=== PATIENT | male | born 1955 | race African-American/Black ===

== ENCOUNTER 2016-08-13 20:47 | Emergency (ER) | payer OTHER ==
[~2016-08-13] VITALS: Ht 172.7 cm; Wt 127.0 kg
[2016-08-13 22:23] LABS: ABSOLUTE BASOPHIL COUNT 0 /CUMM (0.0-0.2); ABSOLUTE EOSINOPHIL COUNT 0.2 /CUMM (0.0-0.7); ABSOLUTE GRANULOCYTE CT 6.3 /CUMM (1.4-6.5); ABSOLUTE LYMPH COUNT 2.7 /CUMM (1.2-3.4); BASOPHIL % 0.3 % (0.0-2.0); EOSINOPHIL % 1.9 % (0-5); GRANULOCYTE % 62.1 % (42.2-75.2); HEMATOCRIT 51.4 % (42-52); MEAN CORPUSCULAR HGB 29.7 PG (27.0-31.0); MEAN CORPUSCULAR VOLUME 89.8 FL (80.0-94.0); MEAN PLATELET VOLUME 8.8 FL (7.4-10.4); PLATELET COUNT 176 /CUMM (130-400); RBC DISTRIBUTION WIDTH 13.9 % (11.5-14.5); RED BLOOD CELL CT 5.73 /CUMM (4.70-6.10); WHITE BLOOD CELL COUNT 10.1 /CUMM (4.8-10.8)
--- NOTE | 2016-08-13 22:32 | ED GI/GU/ABDOMINAL COMPLAINT ---
History of Present Illness General Chief Complaint: General Adult Stated Complaint: RECTAL BLEED Source: patient, family, old records Exam Limitations: no limitations Vital Signs & Intake/Output Vital Signs & Intake/Output Vital Signs Date Time Temp Pulse Resp B/P Pulse O2 O2 Flow FiO2 Ox Delivery Rate 08/14 0041 97.2 87 20 152/95 97 Room Air 08/13 2104 98.2 95 20 147/98 96 Room Air ED Intake and Output 08/14 0000 08/13 1200 Intake Total Output Total Balance Patient 280 lb Weight Allergies Coded Allergies: STATINS (Severe, MUSCLE ACHING, "TAKES MY BREATH AWAY" 08/13/16) soybean (Severe, "CAN'T BREATHE" 08/13/16) Triage Note: TRIAGE: PT TO ER C/C RECTAL BLEEDING THIS EVENING. STATES "WHEN I WENT TO THE BATHROOM EVERYTHING THAT CAME OUT WAS RED". BRIGHT RED IN COLOR. UNSURE IF THERE WAS CLOTS. HAS HX OF BLEEDING HEMMORRHOIDS. HAS BEEN TAKING DOANS FOR BACK PAIN WHICH HE HAS HAD SINCE THE [facility]. Triage Nurses Notes Reviewed? yes Onset: Just prior to arrival Duration: minute(s):, continues in ED Timing: recent history Quality/Severity: moderate, painless Radiation: no radiation Activities at Onset: moving bowels Prior Abdominal Problems: similar symptoms Past Sexual History: Unobtainable at this time No Modifying Factors: none HPI: Patient is been struggling with chronic back pain taking anti-inflammatory medications with little relief. Prior to admission patient reports painless rectal bleeding. Last year he had a similar episode lasting 3 days prescribed suppositories. He denies fever chills nausea vomiting diarrhea abdominal pain dysuria rash headache. Past History Travel History Traveled to [place] past 21 day No Medical History Any Pertinent Medical History? 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 No Review of Systems Review of Systems Constitutional: Reports: no symptoms. EENTM: Reports: no symptoms. Respiratory: Reports: no symptoms. Cardiovascular: Reports: no symptoms. GI: Reports: see HPI, bloody stool. Genitourinary: Reports: no symptoms. Musculoskeletal: Reports: no symptoms. Skin: Reports: no symptoms. Neurological/Psychological: Reports: no symptoms. Hematologic/Endocrine: Reports: no symptoms. Immunologic/Allergic: Reports: no symptoms. All Other Systems: Reviewed and Negative Physical Exam Physical Exam General Appearance: well developed/nourished, alert, awake, anxious, mild distress, obese Head: atraumatic, normal appearance Eyes: Bilateral: normal appearance, PERRL, EOMI, normal inspection. Ears, Nose, Throat, Mouth: hearing grossly normal, moist mucous membrane Neck: normal inspection, supple, full range of motion, normal alignment Respiratory: normal breath sounds, chest non-tender, no respiratory distress, quiet respiration, lungs clear Cardiovascular: regular rate/rhythm, normal peripheral pulses, norml femoral pulses equa Peripheral Pulses: 4+ carotid (R), 4+ carotid (L) Gastrointestinal: normal bowel sounds, soft, non-tender, no organomegaly Rectal: normal rectal tone, scanty blood without stool Male Genitals: normal genitalia Back: normal inspection, muscle spasm, no vertebral tenderness Extremities: normal range of motion, no ligament instability Neurologic/Psych: no motor/sensory deficits, awake, alert, oriented x 3, normal gait, normal mood/affect, 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 No Severe Sepsis Present: No Septic Shock Present: No Progress Differential Diagnosis: gastritis, hemorrhoids, PUD/GERD Plan of Care: Orders Procedure Date/time Status MISTAKE 08/13 2148 Active PARTIAL THROMBOPLASTIN TIME 08/13 2148 Complete PROTHROMBIN TIME 08/13 2148 Complete COMPREHENSIVE METABOLIC PANEL 08/13 2148 Complete CBC WITHOUT DIFFERENTIAL 08/13 2148 Complete Laboratory Tests 08/13/162214: Anion Gap 11, Estimated GFR > 60, BUN/Creatinine Ratio 16.4, Glucose 96, Calcium 9.7, Total Bilirubin 0.6, AST 23, ALT 40, Alkaline Phosphatase 85, Total Protein 7.3, Albumin 3.9, Globulin 3.4, Albumin/Globulin Ratio 1.1, PT 10.8, INR 1.03, APTT 33, CBC w Diff NO MAN DIFF REQ, RBC 5.73, MCV 89.8, MCH 29.7, RDW 13.9, MPV 8.8, Gran % 62.1, Lymphocytes % 26.3, Monocytes % 9.4 H, Eosinophils % 1.9, Basophils % 0.3, Absolute Granulocytes 6.3, Absolute Lymphocytes 2.7, Absolute Monocytes 1.0 H, Absolute Eosinophils 0.2, Absolute Basophils 0, PUBS MCHC 33.0 Initial ED EKG: none Departure Departure Time of Disposition: 32 Disposition: HOME OR SELF CARE Condition: Stable Clinical Impression Primary Impression: Rectal bleeding Referrals: BANDAR RYDER,LINA Kiran (PCP/Family) TRAN LENTZ MD Additional Instructions: Use your lidocaine/steroid suppositories as prescribed Departure Forms: Customer Survey General Discharge Information
[2016-08-13 22:41] LABS: PT 10.8 SEC (9.4-12.5); PTT 33 SEC (25-37)
[2016-08-14 00:41] VITALS: BP 152/95
[2016-08-14] MEDS ORDERED: CYCLOBENZAPRINE10 M1 PO (12:47)
[2016-08-14] MEDS ORDERED: AMMONIUM LACTA226 GM TOP (12:48)
[2016-08-14] MEDS ORDERED: MELOXICAM15 M1 PO (12:49)
[2016-08-14] MEDS ORDERED: MONTELUKAST SOD10 M1 PO (12:50)
[2016-08-14] MEDS ORDERED: JANUMET 50-5001 EACH PO (12:50)
[2016-08-14] MEDS ORDERED: TESTOSTERO200 MG/1 M IM (12:51)
[2016-08-14] MEDS ORDERED: TAMSULOSIN HCL0.4 M1 PO (12:52)
[2016-08-14] MEDS ORDERED: DEXILANT60 M1 PO (12:53)
[2016-08-14] MEDS ORDERED: BENICAR HCT 201 EACH PO (12:53)
[2016-08-14] MEDS ORDERED: AZELASTINE137 MCG/0. NASB (12:54)
[2016-08-14] MEDS ORDERED: LIDOCAINE HC PR (12:56)
== END 2016-08-14 00:43 ==
LOC: ERH 20:47
PROVIDERS: Emergency Medicine
DX: K62.5 Hemorrhage of anus and rectum (principal)
CPT/HCPCS: 96361; 96374

== ENCOUNTER 2016-08-14 10:16 | Observation (INO) | payer OTHER ==
[~2016-08-14] VITALS: Ht 172.7 cm; Wt 127.0 kg
--- NOTE | 2016-08-14 10:25 | NUR ---
61 Y/O MALE C/O RECTAL BLEEDING. STATES HE WAS EVAL'D IN ED LAST NIGHT AND CALLED DR SHIN TODAY, "HE SAID I WAS SUPPOSED TO BE ADMITTED". DENIES ANY NEW/ADDITIONAL COMPLAINTS.
--- NOTE | 2016-08-14 10:58 | NUR ---
PT PROVIDED URINE SAMPLE. TRIO SENT. CLEAR YELLOW URINE.
--- NOTE | 2016-08-14 11:08 | ED GI/GU/ABDOMINAL COMPLAINT ---
History of Present Illness General Chief Complaint: General Adult Stated Complaint: RECTAL BLEEDING, WAS HERE LAST NIGHT Source: patient, family, old records Exam Limitations: no limitations Vital Signs & Intake/Output Vital Signs & Intake/Output Vital Signs Date Time Temp Pulse Resp B/P Pulse O2 O2 Flow FiO2 Ox Delivery Rate 08/14 1510 97.9 67 18 138/83 98 Room Air 08/14 1256 98.3 76 16 143/95 95 Room Air 08/14 1240 97 Room Air 08/14 1026 97.6 96 18 146/108 97 Room Air Allergies Coded Allergies: STATINS (Severe, MUSCLE ACHING, "TAKES MY BREATH AWAY" 08/13/16) soybean (Severe, "CAN'T BREATHE" 08/13/16) Reconcile Medications Ammonium Lactate 12 % LOTION SKIN HEALTH (Reported) Azelastine HCl 137 MCG (0.1 %) SPRAY.PUMP 2 SPRAY NASB BIDP PRN ITCHING ( Reported) Cyclobenzaprine HCl 10 MG TABLET 1 TAB PO QPMP MUSCLE SPASMS (Reported) Dexlansoprazole (Dexilant) 60 MG CAP.BP 1 CAP PO DAILY ACID REFLUX ( Reported) Lidocaine/Hydrocortisone AC (Lidocaine-Hc 3-1% Cream Kit) 3 %-1 % (7 GRAM) KIT PAIN CONTROL (Reported) Meloxicam 15 MG TABLET 1 TAB PO DAILY NEEDED PAIN CONTROL (Reported) Montelukast Sodium 10 MG TABLET 1 TAB PO DAILY PAIN CONTROL (Reported) Olmesartan/Hydrochlorothiazide (Benicar Hct 20-12.5 MG Tablet) 20 MG-12.5 MG TABLET 1 TAB PO DAILY HIGH BLOOD PRESSURE (Reported) Sitagliptin Phos/Metformin HCl (Janumet 50-500 MG Tablet) 50 MG-500 MG TABLET 1 TAB PO BID DIABETES (Reported) Tamsulosin HCl 0.4 MG CAP.ER.24H 1 CAP PO QPM BLADDER HEALTH (Reported) Testosterone Cypionate 200 MG/ML VIAL 1 ML IM Q2W HEALTH SUPPLEMENT (Reported ) Triage Note: 61 Y/O MALE C/O RECTAL BLEEDING. STATES HE WAS EVAL'D IN ED LAST NIGHT AND CALLED DR SHNI TODAY, "HE SAID I WAS SUPPOSED TO BE ADMITTED". DENIES ANY NEW/ADDITIONAL COMPLAINTS. Triage Nurses Notes Reviewed? yes HPI: Patient is a 61 year old male presents complaining of rectal bleeding. Bleeding onset yesterday. 6 episodes of blood per rectum since onset. Patient was seen in the ED yesterday evening, given IV fluids, protonix IV and discharge home. Patient called Gi Dr. Reynolds today and was referred back to the ED for continued epsiodes. Mild diffuse abdominal discomfort. Patient with history of internal hemorrhoid, tried using a steroid suppository with no improvement. Decreased food and fluid intake over the past 24 hours. Patient takes meloxicam regularly. Occasionally takes Advil or aleve, also took Les(aspirin) yesterday for low back pain. Denies lightheadedness, chest pain, dyspnea, nausea, vomiting, fevers, chills. (ADI ALVAREZ) Past History Travel History Traveled to [place] past 21 day No Medical History Any Pertinent Medical History? 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 No (ADI ALVAREZ) Review of Systems Review of Systems Constitutional: Denies: chills, fever. EENTM: Reports: no symptoms. Respiratory: Denies: cough, short of breath. Cardiovascular: Denies: chest pain, syncope. GI: Reports: see HPI, abdominal pain, bloody stool. Denies: nausea, vomiting. Genitourinary: Reports: no symptoms. Musculoskeletal: Reports: back pain. Skin: Reports: no symptoms. Neurological/Psychological: Reports: no symptoms. Hematologic/Endocrine: Reports: see HPI. Immunologic/Allergic: Reports: no symptoms. (ADI ALVAREZ) Physical Exam Physical Exam General Appearance: well developed/nourished, alert, awake, obese Head: atraumatic, normal appearance Eyes: Bilateral: normal appearance, PERRL, EOMI. Ears, Nose, Throat, Mouth: hearing grossly normal, moist mucous membrane Neck: normal inspection, supple, full range of motion Respiratory: normal breath sounds, chest non-tender, no respiratory distress, lungs clear Cardiovascular: regular rate/rhythm (borderline tachycardic) Gastrointestinal: normal bowel sounds, soft, non-tender Rectal: small amount of bright red blood in rectal vault. No external hemorrhoid Back: normal inspection, normal range of motion, no vertebral tenderness Extremities: normal range of motion Neurologic/Psych: no motor/sensory deficits, awake, alert, oriented x 3, normal gait, normal mood/affect Skin: intact, normal color, warm/dry Core Measures ACS in differential dx? No Severe Sepsis Present: No Septic Shock Present: No (JERILYN WATERS,ADI) Progress Differential Diagnosis: bleeding hemorrhoids, diverticular bleed, upper GI bleed Plan of Care: Orders Procedure Date/time Status Clear Liquid Diet 08/14 D Active Patient Data 08/[address] in observation 08/14 1548 Active Vital Signs 08/14 1505 Active Code Status 08/14 1505 Active MISTAKE 08/14 1119 Active PROTHROMBIN TIME 08/14 1119 Complete BASIC METABOLIC PANEL 08/14 1119 Complete TYPE & SCREEN (NOT X-MATCH) 08/14 1119 Complete CBC WITHOUT DIFFERENTIAL 08/14 1108 Complete URINALYSIS 08/14 1054 Complete Laboratory Tests 08/14/16 1137: Anion Gap 10, Estimated GFR > 60, BUN/Creatinine Ratio 17.8, Glucose 98, Calcium 9.5, PT 11.8, INR 1.13, CBC w Diff NO MAN DIFF REQ, RBC 5.55, MCV 89.5, MCH 30.0 , RDW 14.0, MPV 9.1, Gran % 72.3, Lymphocytes % 18.9 L, Monocytes % 6.9, Eosinophils % 1.3, Basophils % 0.6, Absolute Granulocytes 6.0, Absolute Lymphocytes 1.6, Absolute Monocytes 0.6, Absolute Eosinophils 0.1, Absolute Basophils 0, PUBS MCHC 33.5 08/14/16 1055: Urine Color YEL, Urine Clarity CLEAR, Urine pH 6.0, Ur Specific [place] 1.020, Urine Protein NEG, Urine Ketones NEG, Urine Nitrite NEG, Urine Bilirubin NEG, Urine Urobilinogen 0.2, Ur Leukocyte Esterase NEG, Ur Microscopic SEDIMENT EXAMINED, Urine RBC 1-3, Urine WBC RARE, Urine Bacteria RARE H, Urine Mucus FEW , Urine Hemoglobin TRACE-INTACT H, Urine Glucose NEG 1135: Discussed with Dr. Rivas. 08/14/2016 12:05:21 PM: Results of repeat CBC discussed with patient. Patient resting comfortably. No significant change in hemoglobin since yesterday evening. Awaiting call back from Dr. Reynolds to discuss patient. 1215: Discussed with Dr. Reynolds: will take patient for sigmoidoscopy this afternoon, will call back prior as patient will need enema approximately 30 minutes prior to arrival. 1500: Discussed with Dr. Reynolds: patient has internal hemorrhoids, no bleeding from the hemorrhoids. Diverticulosis seen on the sigmoidoscopy but no active bleeding in the area visualized. Given extent of patient's diverticulosis, recommends bringing for observation, clear liquid diet, serial CBC's(twice a day ), contact immediately if any emergent changes (ADI ALVAREZ) Initial ED EKG: none (ADI ALVAREZ) Departure Departure Time of Disposition: 1551 Disposition: STILL A PATIENT Condition: Stable Clinical Impression Primary Impression: Rectal bleeding Referrals: BANDAR RYDER,LINA Kiran (PCP/Family) Departure Forms: Customer Survey General Discharge Information Observation Note Spoke With: FRANCE DUENAS MD Physician Advisor Notified: BOBY RYDER,MONTSE [address] Place Patient In: Non-ED OBS Care Area Rationale for Observation: My rational for observation is as follows: Serial complete blood cell counts, monitoring for any worsening bleeding. Patient had sigmoidoscopy this afternoon and gastroenterology recommends observation based on the findings of the sigmoidoscopy. (ADI ALVAREZ) PA/SHOT PACKER Co-Sign Statement Statement: ED Attending supervision documentation- [X] I saw and evaluated the patient. I have also reviewed all the pertinent lab results and diagnostic results. I agree with the findings and the plan of care as documented in the PA's/SHOT PACKER's documentation. [X] I have reviewed the ED Record and agree with the PA's/SHOT PACKER's documentation. [] Additions or exceptions (if any) to the PAs/SHOT PACKER's note and plan are summarized below: [] (KAVITA RYDER,REN)
--- NOTE | 2016-08-14 11:30 | NUR ---
TRIAGE NOTE ACKNOWLEDGED AND RN CARE ASSUMED PT EVALUATED BY PA STUDENT AND LETY WATERS
--- NOTE | 2016-08-14 11:38 | NUR ---
LABS DRAWN AND SENT (BLUE,SST,PINK,LAV,MORILLO)
[2016-08-14 11:55] LABS: ABSOLUTE BASOPHIL COUNT 0 /CUMM (0.0-0.2); ABSOLUTE EOSINOPHIL COUNT 0.1 /CUMM (0.0-0.7); ABSOLUTE LYMPH COUNT 1.6 /CUMM (1.2-3.4); ABSOLUTE MONOCYTE COUNT 0.6 /CUMM (0.10-0.60); BASOPHIL % 0.6 % (0.0-2.0); EOSINOPHIL % 1.3 % (0-5); GRANULOCYTE % 72.3 % (42.2-75.2); HEMATOCRIT 49.7 % (42-52); MEAN CORPUSCULAR HGB CONC 33.5 G/DL (33.0-37.0); MEAN CORPUSCULAR VOLUME 89.5 FL (80.0-94.0); MEAN PLATELET VOLUME 9.1 FL (7.4-10.4); PLATELET COUNT 161 /CUMM (130-400); RED BLOOD CELL CT 5.55 /CUMM (4.70-6.10); WHITE BLOOD CELL COUNT 8.3 /CUMM (4.8-10.8)
[2016-08-14 12:09] LABS: PT 11.8 SEC (9.4-12.5)
[2016-08-14] MEDS ORDERED: CYCLOBENZAPRINE10 M1 PO (12:47)
[2016-08-14] MEDS ORDERED: AMMONIUM LACTA226 GM TOP (12:48)
[2016-08-14] MEDS ORDERED: MELOXICAM15 M1 PO (12:49)
[2016-08-14] MEDS ORDERED: MONTELUKAST SOD10 M1 PO (12:50)
[2016-08-14] MEDS ORDERED: JANUMET 50-5001 EACH PO (12:50)
[2016-08-14] MEDS ORDERED: TESTOSTERO200 MG/1 M IM (12:51)
[2016-08-14] MEDS ORDERED: TAMSULOSIN HCL0.4 M1 PO (12:52)
[2016-08-14] MEDS ORDERED: BENICAR HCT 201 EACH PO (12:53)
[2016-08-14] MEDS ORDERED: DEXILANT60 M1 PO (12:53)
[2016-08-14] MEDS ORDERED: AZELASTINE137 MCG/0. NASB (12:54)
[2016-08-14] MEDS ORDERED: LIDOCAINE HC PR (12:56)
--- NOTE | 2016-08-14 13:15 | NUR ---
ADMINISTERED FLEETS ENEMA ORDERED WITH POSITIVE RESULTS PT HAD LARGE SEMI FORMED BOWEL MOVEMENT WITH BLOODY WATER NOTED. PT TOLERATED PROCEEDURE WELL.
--- NOTE | 2016-08-14 14:06 | NUR ---
PT SENT TO GI LAB
--- NOTE | 2016-08-14 15:08 | NUR ---
PT RETUNED TO ROOM FROM GI. ACCORDING TO REPORT FROM GI RN, BLEEDING APPEARS TO BE COMING FROM AN INFLAMMED DIVERTICULA. PT AWAKE AND ALERT, ALL V.S.S.
--- NOTE | 2016-08-14 15:13 | Cons- Gastroenterology ---
General Information and HPI Consulting Request Date of Consult: 08/14/16 Requested By: Emergency Department Reason for Consult: Hematochezia Source of Information: patient History of Present Illness: 61-year-old male with a history of diverticular disease and "abscess" who had the acute onset of lower abdominal discomfort, loose bowel movements, and blood per rectum last night. This persisted and he presented to emergency room. He has had no syncope, lightheadedness, upper abdominal pain, antecedent bleeding or pain, chronic indigestion. His last passage of blood was this morning Allergies/Medications Allergies: Coded Allergies: STATINS (Severe, MUSCLE ACHING, "TAKES MY BREATH AWAY" 08/13/16) soybean (Severe, "CAN'T BREATHE" 08/13/16) Home Med List: Ammonium Lactate 12 % LOTION SKIN HEALTH (Reported) Azelastine HCl 137 MCG (0.1 %) SPRAY.PUMP 2 SPRAY NASB BIDP PRN ITCHING ( Reported) Cyclobenzaprine HCl 10 MG TABLET 1 TAB PO QPMP MUSCLE SPASMS (Reported) Dexlansoprazole (Dexilant) 60 MG CAP..BP 1 CAP PO DAILY ACID REFLUX ( Reported) Lidocaine/Hydrocortisone AC (Lidocaine-Hc 3-1% Cream Kit) 3 %-1 % (7 GRAM) KIT PAIN CONTROL (Reported) Meloxicam 15 MG TABLET 1 TAB PO DAILY NEEDED PAIN CONTROL (Reported) Montelukast Sodium 10 MG TABLET 1 TAB PO DAILY PAIN CONTROL (Reported) Olmesartan/Hydrochlorothiazide (Benicar Hct 20-12.5 MG Tablet) 20 MG-12.5 MG TABLET 1 TAB PO DAILY HIGH BLOOD PRESSURE (Reported) Omeprazole 40 MG CAPSULE.DR 1 CAP PO BID Reflux Sitagliptin Phos/Metformin HCl (Janumet 50-500 MG Tablet) 50 MG-500 MG TABLET 1 TAB PO BID DIABETES (Reported) Tamsulosin HCl 0.4 MG CAP.ER.24H 1 CAP PO QPM BLADDER HEALTH (Reported) Testosterone Cypionate 200 MG/ML VIAL 1 ML IM Q2W HEALTH SUPPLEMENT (Reported ) Current Medications: Current Medications Sig/Darwin Start time Last Medication Dose Route Stop Time Status Admin Chlorhexidine 1 GM .STK-MED ONE 08/14 1505 DC Gluconate TOP 08/14 1506 Sodium Chloride 1,000 ML ONCE ONE 08/14 1200 AC 08/14 IV 08/14 1959 1237 Sodium Phosphate 1 UNIT ONCE ONE 08/14 1245 DC 08/14 MN 08/14 1246 1314 Past History Travel History Traveled to [place] past 21 day No Medical History Neurological: NONE EENT: allergies Cardiovascular: hyperlipidemia Respiratory: NONE Gastrointestinal: HEMMORRHOIDS ACID REFLUX diverticulosis Hepatic: NONE Renal: NONE Musculoskeletal: osteoarthritis Psychiatric: NONE Endocrine: diabetes Blood Disorders: NONE 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 EENTM: Denies: icterus, epistaxis. Cardiovascular: Denies: chest pain, syncope. Respiratory: Denies: cough, hemoptysis, short of breath. GI: Reports: see HPI. Genitourinary: Denies: dysuria, hematuria. Musculoskeletal: Denies: joint swelling, neck pain. Skin: Denies: jaundice, lesions. Neurological/Psychological: Denies: cognitive dysfunction, numbness. Hematologic/Endocrine: Reports: bleeding. Denies: bruising. Exam & Diagnostic Data Vital Signs and I&O Vital Signs Date Time Temp Pulse Resp B/P Pulse O2 O2 Flow FiO2 Ox Delivery Rate 08/14 1256 98.3 76 16 143/95 95 Room Air 08/14 1240 97 Room Air 08/14 1026 97.6 96 18 146/108 97 Room Air Intake & Output 08/14 1600 08/14 0400 08/13 1600 08/13 0400 08/12 1600 08/12 0400 Intake Total Output Total Balance Number 1 Bowel Movements Patient 280 lb Weight Physical Exam: Well-developed, obese -[place] male, no apparent distress. Alert and oriented with normal cognition. Skin without lesion. No adenopathy. No scleral icterus. No oropharyngeal lesion. Heart regular rhythm. Lungs clear bilaterally. Abdomen obese and soft with no tenderness, mass or organomegaly, with normal bowel sounds. No edema. Results Pertinent Lab Results: Laboratory Tests 08/14 08/14 1137 1055 Chemistry Sodium (137 - 145 mmol/L) 138 Potassium (3.5 - 5.1 mmol/L) 4.1 Chloride (98 - 107 mmol/L) 101 Carbon Dioxide (22 - 30 mmol/L) 27 Anion Gap (5 - 16) 10 BUN (9 - 20 mg/dL) 16 Creatinine (0.7 - 1.2 mg/dL) 0.9 Estimated GFR (>60 ml/min) > 60 BUN/Creatinine Ratio (7 - 25 %) 17.8 Glucose (65 - 99 mg/dL) 98 Calcium (8.4 - 10.2 mg/dL) 9.5 Coagulation PT (9.4 - 12.5 SEC) 11.8 INR (0.90 - 1.17) 1.13 Hematology CBC w Diff NO MAN DIFF REQ WBC (4.8 - 10.8 /CUMM) 8.3 RBC (4.70 - 6.10 /CUMM) 5.55 Hgb (14.0 - 18.0 G/DL) 16.7 Hct (42 - 52 %) 49.7 MCV (80.0 - 94.0 FL) 89.5 MCH (27.0 - 31.0 PG) 30.0 RDW (11.5 - 14.5 %) 14.0 Plt Count (130 - 400 /CUMM) 161 MPV (7.4 - 10.4 FL) 9.1 Gran % (42.2 - 75.2 %) 72.3 Lymphocytes % (20.5 - 51.1 %) 18.9 L Monocytes % (1.7 - 9.3 %) 6.9 Eosinophils % (0 - 5 %) 1.3 Basophils % (0.0 - 2.0 %) 0.6 Absolute Granulocytes (1.4 - 6.5 /CUMM) 6.0 Absolute Lymphocytes (1.2 - 3.4 /CUMM) 1.6 Absolute Monocytes (0.10 - 0.60 /CUMM) 0.6 Absolute Eosinophils (0.0 - 0.7 /CUMM) 0.1 Absolute Basophils (0.0 - 0.2 /CUMM) 0 PUBS MCHC (33.0 - 37.0 G/DL) 33.5 Urines Urine Color (YEL,AMB,STR) YEL Urine Clarity (CLEAR) CLEAR Urine pH (5.0 - 8.0) 6.0 Ur Specific [place] (1.001 - 1.035) 1.020 Urine Protein (NEG,<30 MG/DL) NEG Urine Ketones (NEG) NEG Urine Nitrite (NEG) NEG Urine Bilirubin (NEG) NEG Urine Urobilinogen (0.1 - 1.0 EU/dl) 0.2 Ur Leukocyte Esterase (NEG) NEG Ur Microscopic SEDIMENT EXAMINED Urine RBC (0 - 5 /HPF) 1-3 Urine WBC (0 - 2 /HPF) RARE Urine Bacteria (NEG/NONE) RARE H Urine Mucus (FEW,NONE) FEW Urine Hemoglobin (NEG) TRACE-INTACT H Urine Glucose (N MG/DL) NEG Assessment/Plan Assessment/Recommendations: Acute onset hematochezia without hemodynamic compromise, and with normal hematocrit, without change since last night. Most likely hemorrhoidal/outlet bleeding (although with loose bowel movement and pain, which is not consistent), but rule out diverticular or other colonic source. Recommendations * Flexible sigmoidoscopy to be performed, with further recommendations to follow * Follow CBC Consult Acknowledgment - Thank you for your consult request.
--- NOTE | 2016-08-14 15:16 | Proc Note Gastroenterology ---
Gastroenterology Procedure Procedure Date: 08/14/16 GI Procedure(s): Flexible sigmoidoscopy Drywall Installer: Supa Reynolds M.D. ASA Classification: III Indications: Hematochezia Meds Received: None Patient's Tolerance: good Complications: None Extent Reached: 45 cm Procedure: The patient signed informed consent, and was placed in the Power position. Examination of the rectum was normal. The Olympus high-definition variable stiffness colonoscope was inserted through the anus and advanced to the left colon, 45 cm from the anus.. Retroflexion was performed in order to examine the rectum. Findings: There were enlarged internal hemorrhoids, but no friability, bleeding site, or evidence of recent bleeding such as nipple/bony. There was no blood within the distal rectum. The rectal mucosa was normal. There was sigmoid diverticulosis with scant red blood coating areas of the mucosa. There was abundant stool, formed. No active bleeding site, nor clot was identified. Impression: * Diverticulosis * Enlarged internal hemorrhoids, without evidence of active or recent bleeding Recommendations: * Observation * Clear liquid diet * Follow-up CBC twice a day CC: BANDAR RYDER,LINA Kiran
--- NOTE | 2016-08-14 16:08 | NUR ---
PT WAS INCONTINENT OD A MODERATE AMOUNT OF BLOODY MUCUS.
--- NOTE | 2016-08-14 16:29 | NUR ---
Emergency Dept UC Admit Note: To be admitted to [facility] by DR DUENAS with ACUTE LOWER GI BLEED as the diagnosis, to GEN MED/OBSERVATION location. Nursing Setup Technician and admitting notified 08/14/16 at 1612 PT WILL GO TO ROOM 216-1
--- NOTE | 2016-08-14 17:02 | NUR ---
PT ADMITTED TO ROOM # 216-1. ORAL REPORT GIVEN TO XIN TURNER ALL V.S.S. CLINICAL STATUS UNCHANGED, PT READY FOR TRANSFER.
--- NOTE | 2016-08-14 17:33 | NUR ---
DISTRIBUTION CALLED TO TRANSFER PT
--- NOTE | 2016-08-14 18:00 | NUR ---
NURSING NOTE: PATIENT ARRIVED TO FLOOR VIA STRETCHER WITH DISTRIBUTION FROM ER. PATIENT A/OX3, ROOM AIR, SKIN INTACT, VSS. PATIENT INDEPENDENTLY WALKED FROM STRETCHER TO BED. IV RUNNING NS @ 125 FROM ER PER ORDER. PATIENT'S BELONGINGS BROUGHT FROM ER TO PATIENT ROOM PLACED IN CABINETS IN ROOM BY SPOUSE. CLEAR LIQUID DIET IN PLACE. HAT PLACED IN BATHROOM, PATIENT INFORMED TO HAVE BOWEL MOVEMENTS IN HAT FOR THEM TO BE TESTED. WILL CONTINUE TO MONITOR.
[2016-08-14 18:11] VITALS: BP 148/98
--- NOTE | 2016-08-14 19:28 | History & Physical ---
See Addendum General Information and HPI MD Statement: I have seen and personally examined KRISTEN RHODES JR and documented this H&P. The patient is a 61 year old M who presented with a patient stated chief complaint of [lower GI bleeding]. Source of Information: patient, family, old records Exam Limitations: no limitations History of Present Illness: Mr. Rhodes 61 year old male with chief complaint of lower GI bleeding. Patient has past medical history of diverticulosis, diabetes, hypertension, GERD , BPH, chronic back pain. Patient reported that yesterday he started to have deana bleeding per rectum with minimal stool, he had 7 episodes up to now, he visited the ED yesterday and received IV fluid and was discharged home, came again this afternoon with excessive rectal bleeding and had sigmoidoscope by Dr. Reynolds. Patient reported that his last normal bowel movement was yesterday morning, he used new medication "Doans" for back pain which is aspirin 2 tablets twice a day, and started to have bleeding per rectum afterwords. He denied any abdominal pain, nausea or vomiting, urinary changes dysuria or hematuria, bleeding from nose, mouth, ears, bruises. Patient denied chest pain, palpitation, shortness of breath, lightheadedness or dizziness. Patient had his last colonoscope [address] Borden, few polyps were removed and was asked to do follow up colonoscopy in 5 years. He denied history of constipation although he used to take Colace every other day. Allergies/Medications Allergies: Coded Allergies: STATINS (Severe, MUSCLE ACHING, "TAKES MY BREATH AWAY" 08/13/16) soybean (Severe, "CAN'T BREATHE" 08/13/16) Home Med list Ammonium Lactate 12 % LOTION SKIN HEALTH (Reported) Azelastine HCl 137 MCG (0.1 %) SPRAY.PUMP 2 SPRAY NASB BIDP PRN ITCHING ( Reported) Cyclobenzaprine HCl 10 MG TABLET 1 TAB PO QPMP MUSCLE SPASMS (Reported) Dexlansoprazole (Dexilant) 60 MG DANN.BP 1 CAP PO DAILY ACID REFLUX ( Reported) Lidocaine/Hydrocortisone AC (Lidocaine-Hc 3-1% Cream Kit) 3 %-1 % (7 GRAM) KIT PAIN CONTROL (Reported) Meloxicam 15 MG TABLET 1 TAB PO DAILY NEEDED PAIN CONTROL (Reported) Montelukast Sodium 10 MG TABLET 1 TAB PO DAILY PAIN CONTROL (Reported) Olmesartan/Hydrochlorothiazide (Benicar Hct 20-12.5 MG Tablet) 20 MG-12.5 MG TABLET 1 TAB PO DAILY HIGH BLOOD PRESSURE (Reported) Sitagliptin Phos/Metformin HCl (Janumet 50-500 MG Tablet) 50 MG-500 MG TABLET 1 TAB PO BID DIABETES (Reported) Tamsulosin HCl 0.4 MG CAP.ER.24H 1 CAP PO QPM BLADDER HEALTH (Reported) Testosterone Cypionate 200 MG/ML VIAL 1 ML IM Q2W HEALTH SUPPLEMENT (Reported ) Past History Travel History Traveled to [place] past 21 day No Medical History Blood Transfusion Hx: No Neurological: NONE EENT: allergies Cardiovascular: hyperlipidemia Respiratory: NONE Gastrointestinal: HEMMORRHOIDS ACID REFLUX diverticulosis Hepatic: NONE Renal: NONE Musculoskeletal: osteoarthritis Psychiatric: NONE Endocrine: diabetes Blood Disorders: NONE Cancer(s): NONE 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 EENTM: Denies: blurred vision, nasal congestion. Cardiovascular: Denies: chest pain, palpitations. Respiratory: Denies: cough, short of breath. GI: Denies: abdominal pain, nausea, vomiting. Genitourinary: Denies: dysuria, hematuria. Musculoskeletal: Reports: back pain. Denies: joint pain. Neurological/Psychological: Denies: headache. Exam & Diagnostic Data Last 24 Hrs of Vital Signs/I&O Vital Signs Date Time Temp Pulse Resp B/P Pulse O2 O2 Flow FiO2 Ox Delivery Rate 08/14 1811 98.2 75 20 148/98 96 Room Air 08/14 1728 84 18 142/93 97 Room Air 08/14 1510 97.9 67 18 138/83 98 Room Air 08/14 1256 98.3 76 16 143/95 95 Room Air 08/14 1240 97 Room Air 08/14 1026 97.6 96 18 146/108 97 Room Air Intake & Output 08/14 1600 08/14 0800 08/14 0000 Intake Total Output Total Balance Number 1 Bowel Movements Patient 127.006 kg Weight Physical Exam General Appearance Alert, Oriented X3, Cooperative, No Acute Distress Skin No Rashes, No Breakdown, No Significant Lesion HEENT Atraumatic, PERRLA, EOMI, Mucous Membr. moist/pink Neck Supple, No JVD Cardiovascular Regular Rate, Normal S1, Normal S2, No Murmurs Lungs Clear to Auscultation, Normal Air Movement Abdomen Normal Bowel Sounds, Soft, No Tenderness Neurological Normal Speech, Strength at 5/5 X4 Ext, Normal Tone, Sensation Intact, Cranial Nerves 3-12 NL, Reflexes 2+ Extremities No Clubbing, No Cyanosis, No Edema, Normal Pulses Vascular Normal Pulses, Pulses Symmetrical Assessment/Plan Assessment: Mr. Rhodes 61 year old male with chief complaint of lower GI bleeding. Patient has past medical history of diverticulosis, diabetes, hypertension, GERD , BPH, chronic back pain. Vital signs Temperature 97.6, pulse 96, blood pressure 146/108, respiration 18 on room air saturation 97% Lab H&H 15.6/47.4, BMP within normal Sigmoidoscopy Impression: * Diverticulosis * Enlarged internal hemorrhoids, without evidence of active or recent bleeding Plan -Observed the patient for 24 hours -Advance the diet to clear liquid diet -Continue monitor CBC twice a day -Continue home medication except for aspirin and nonsteroidal anti-inflammatory drugs -Code full -DVT prophylaxis ALPS As Ranked By This Provider Problem List: 1. Rectal bleeding Core Measures/Miscellaneous Acute Coronary Syndrome ACS Diagnosis: No Cerebrovascular Accident CVA/TIA Diagnosis: No Congestive Heart Failure CHF Diagnosis: No Venous Thromboembolism VTE Risk Factors: Age > 40 No Mech VTE prophylaxis d/t: No contraindications No VTE Pharm Prophylaxis d/t: Active bleeding VTE Diagnosis: No VTE Type: NONE VTE Confirmed by (Test): NONE Severe Sepsis Severe Sepsis Present: No Septic Shock Septic Shock Present: No Miscellaneous Documentation Attending Case Discussed With: FRANCE DUENAS MD Primary Care Physician: LINA PORTILLO MD Patient sees these Specialists GI Podiatry Level of Patient Care: ED Observation
[2016-08-14 20:48] LABS: ABSOLUTE BASOPHIL COUNT 0 /CUMM (0.0-0.2); ABSOLUTE EOSINOPHIL COUNT 0.1 /CUMM (0.0-0.7); ABSOLUTE GRANULOCYTE CT 6.1 /CUMM (1.4-6.5); ABSOLUTE LYMPH COUNT 2.3 /CUMM (1.2-3.4); ABSOLUTE MONOCYTE COUNT 0.8 /CUMM (0.10-0.60); BASOPHIL % 0.3 % (0.0-2.0); EOSINOPHIL % 1.5 % (0-5); GRANULOCYTE % 65.4 % (42.2-75.2); HEMATOCRIT 47.4 % (42-52); MEAN CORPUSCULAR HGB 29.6 PG (27.0-31.0); MEAN CORPUSCULAR HGB CONC 32.8 G/DL (33.0-37.0); MEAN CORPUSCULAR VOLUME 90.3 FL (80.0-94.0); MEAN PLATELET VOLUME 8.7 FL (7.4-10.4); PLATELET COUNT 158 /CUMM (130-400); RBC DISTRIBUTION WIDTH 14.4 % (11.5-14.5); RED BLOOD CELL CT 5.26 /CUMM (4.70-6.10); WHITE BLOOD CELL COUNT 9.4 /CUMM (4.8-10.8)
[2016-08-14 22:07] VITALS: BP 152/102
--- NOTE | 2016-08-14 23:20 | NUR ---
08/14/162199 DR KAUR NOTIFIED OF PT C/O ACID REFLUX/NAUSEA. SEE ORDERS.
[2016-08-15 00:16] VITALS: BP 137/89
[2016-08-15 06:54] VITALS: BP 139/86
--- NOTE | 2016-08-15 08:17 | PN- Housestaff ---
See Addendum Subjective Follow-up For: Lower GI bleeding Subjective: Patient was seen and examined this morning, he reported to bowel movement of solid stool mix it with blood and blood on toilet paper. Patient denied abdominal pain but does reported abdominal discomfort across the stomach and at the left lower quadrant 'Throbbing in nature '. He denied nausea, vomiting. He reported that his urine looks darker than usual. He denied any dizziness, lightheadedness, visual changes, chest pain or palpitation. Vital signs are stable. Review of Systems Constitutional: Reports: see HPI. Objective Last 24 Hrs of Vital Signs/I&O Vital Signs Date Time Temp Pulse Resp B/P Pulse O2 O2 Flow FiO2 Ox Delivery Rate 08/15 0654 98.2 63 20 139/86 95 / 0016 61 137/89 94 08/14 2207 97.4 70 20 152/102 96 Room Air 08/14 1811 98.2 75 20 148/98 96 Room Air 08/14 1728 84 18 142/93 97 Room Air 08/14 1510 97.9 67 18 138/83 98 Room Air Intake & Output 08/15 1600 /04 0800 / 0000 Intake Total 220 740 Output Total 600 1000 1000 Balance -600 -780 -260 Intake, IV 100 500 Intake, Oral 120 240 Number 1 Bowel Movements Output, Urine 600 1000 1000 Patient 127.006 kg Weight Physical Exam General Appearance: Alert, Oriented X3, Cooperative, No Acute Distress Skin: No Rashes, No Breakdown, No Significant Lesion HEENT: Atraumatic, PERRLA, EOMI, Mucous Membr. moist/pink Neck: Supple Cardiovascular: Regular Rate, Normal S1, Normal S2, No Murmurs Lungs: Clear to Auscultation, Normal Air Movement Abdomen: Normal Bowel Sounds, Soft, No Tenderness Neurological: Normal Gait, Normal Speech, Strength at 5/5 X4 Ext, Normal Tone, Sensation Intact, Cranial Nerves 3-12 NL, Reflexes 2+ Extremities: No Clubbing, No Cyanosis, No Edema, Normal Pulses Assessment/Plan Assessment: Mr. Rhodes 61 year old male with chief complaint of lower GI bleeding. Patient has past medical history of diverticulosis, diabetes, hypertension, GERD , BPH, chronic back pain. Sigmoidoscopy Impression: * Diverticulosis * Enlarged internal hemorrhoids, without evidence of active or recent bleeding Plan -Observation -GI recommendation was obtained -Advance the diet to regular diet -CBC hemoglobin 15.4<15.6<16.7 -Continue home medication except for aspirin and nonsteroidal anti-inflammatory drugs -Start NovoLog low-dose sliding scale TIDAC -Code full -DVT prophylaxis ALPS Problem List: 1. Rectal bleeding Pain Ratin Pain Location: Abdominal discomfort Pain Goal: Pain 4 or less Pain Plan: Mild pain pathway Tomorrow's Labs & Rationales: CBC
[2016-08-15 09:21] LABS: ABSOLUTE BASOPHIL COUNT 0 /CUMM (0.0-0.2); ABSOLUTE EOSINOPHIL COUNT 0.2 /CUMM (0.0-0.7); ABSOLUTE LYMPH COUNT 2.1 /CUMM (1.2-3.4); ABSOLUTE MONOCYTE COUNT 0.8 /CUMM (0.10-0.60); BASOPHIL % 0.4 % (0.0-2.0); HEMATOCRIT 45.5 % (42-52); MEAN CORPUSCULAR HGB 30.3 PG (27.0-31.0); MEAN CORPUSCULAR HGB CONC 33.8 G/DL (33.0-37.0); MEAN CORPUSCULAR VOLUME 89.6 FL (80.0-94.0); MEAN PLATELET VOLUME 9.3 FL (7.4-10.4); PLATELET COUNT 162 /CUMM (130-400); RBC DISTRIBUTION WIDTH 14.2 % (11.5-14.5); RED BLOOD CELL CT 5.07 /CUMM (4.70-6.10); WHITE BLOOD CELL COUNT 8.1 /CUMM (4.8-10.8)
--- NOTE | 2016-08-15 13:33 | PN- Gastroenterology ---
Assessment/Plan Assessment/Recommendations: Hematochezia, stopped. Possible small diverticular bleed, versus hemorrhoidal ( although hemorrhoids were not bleeding or friability time of sigmoidoscopy yesterday). Hematocrit has remained stable over 48 hours. Recommendations * Advance to regular diet * May send home tonight if without evidence of recurrent bleeding. * Follow-up with Dr. Borden in 10-14 days Subjective Subjective: No bowel movements today. No rectal bleeding. Abdomen according to the patient is somewhat bloated and tender. Objective Vital Signs and I&Os Vital Signs Date Time Temp Pulse Resp B/P Pulse O2 O2 Flow FiO2 Ox Delivery Rate 08/15 0654 98.2 63 20 139/86 95 08/15 0016 61 137/89 94 08/14 2207 97.4 70 20 152/102 96 Room Air 08/14 1811 98.2 75 20 148/98 96 Room Air 08/14 1728 84 18 142/93 97 Room Air 08/14 1510 97.9 67 18 138/83 98 Room Air Intake & Output 08/15 1600 08/15 0400 08/14 1600 08/14 0400 08/13 1600 08/13 0400 Intake Total 220 740 Output Total 1600 1000 Balance -1380 -260 Intake, IV 100 500 Intake, Oral 120 240 Number 1 1 Bowel Movements Output, Urine 1600 1000 Patient 280 lb 280 lb Weight Physical Exam: Abdomen is mildly distended, soft. There is no tenderness to palpation. Current Medications: Current Medications Sig/Darwin Start time Last Medication Dose Route Stop Time Status Admin Acetaminophen 650 MG Q6P PRN 08/14 1930 AC PO Acetaminophen 1,000 MG Q6P PRN 08/14 1930 AC 08/15 IV 0414 Chlorhexidine 1 GM .STK-MED ONE 08/14 1505 DC Gluconate TOP 08/14 1506 Insulin Aspart 0 TIDAC 08/15 1200 AC SC Losartan Potassium 50 MG DAILY 08/15 1600 AC PO Montelukast Sodium 10 MG DAILY 08/15 1000 AC PO Morphine Sulfate 2 MG Q6-PRN PRN 08/14 1945 AC IV Omeprazole 20 MG DAILY AC 08/15 0700 AC 08/15 PO 0422 Ondansetron HCl 4 MG ONCE ONE 08/14 2145 DC 08/14 IV 08/14 2146 2200 Pantoprazole Sodium 20 MG DAILY 08/14 2200 DC IV Pantoprazole Sodium 20 MG ONCE ONE 08/14 2144 DC 08/14 IV 08/14 214 2238 Patient Medication 1 UNIT ONE NR 08/15 0930 DC Teaching ED 08/15 1000 Sodium Chloride 1,000 ML ONCE ONE 08/14 1200 DC 08/14 IV 08/14 1959 1237 Tamsulosin HCl 0.4 MG QPM 08/15 2200 AC PO Results Pertinent Lab Results: Laboratory Tests 08/15 Hematology CBC w Diff NO MAN DIFF REQ NO MAN DIFF REQ WBC (4.8 - 10.8 /CUMM) 8.1 9.4 RBC (4.70 - 6.10 /CUMM) 5.07 5.26 Hgb (14.0 - 18.0 G/DL) 15.4 15.6 Hct (42 - 52 %) 45.5 47.4 MCV (80.0 - 94.0 FL) 89.6 90.3 MCH (27.0 - 31.0 PG) 30.3 29.6 RDW (11.5 - 14.5 %) 14.2 14.4 Plt Count (130 - 400 /CUMM) 162 158 MPV (7.4 - 10.4 FL) 9.3 8.7 Gran % (42.2 - 75.2 %) 62.0 65.4 Lymphocytes % (20.5 - 51.1 %) 25.8 24.7 Monocytes % (1.7 - 9.3 %) 9.8 H 8.1 Eosinophils % (0 - 5 %) 2.0 1.5 Basophils % (0.0 - 2.0 %) 0.4 0.3 Absolute Granulocytes (1.4 - 6.5 /CUMM) 5.0 6.1 Absolute Lymphocytes (1.2 - 3.4 /CUMM) 2.1 2.3 Absolute Monocytes (0.10 - 0.60 /CUMM) 0.8 H 0.8 H Absolute Eosinophils (0.0 - 0.7 /CUMM) 0.2 0.1 Absolute Basophils (0.0 - 0.2 /CUMM) 0 0 PUBS MCHC (33.0 - 37.0 G/DL) 33.8 32.8 L 08/14 08/14 1137 1055 Chemistry Sodium (137 - 145 mmol/L) 138 Potassium (3.5 - 5.1 mmol/L) 4.1 Chloride (98 - 107 mmol/L) 101 Carbon Dioxide (22 - 30 mmol/L) 27 Anion Gap (5 - 16) 10 BUN (9 - 20 mg/dL) 16 Creatinine (0.7 - 1.2 mg/dL) 0.9 Estimated GFR (>60 ml/min) > 60 BUN/Creatinine Ratio (7 - 25 %) 17.8 Glucose (65 - 99 mg/dL) 98 Calcium (8.4 - 10.2 mg/dL) 9.5 Coagulation PT (9.4 - 12.5 SEC) 11.8 INR (0.90 - 1.17) 1.13 Hematology CBC w Diff NO MAN DIFF REQ WBC (4.8 - 10.8 /CUMM) 8.3 RBC (4.70 - 6.10 /CUMM) 5.55 Hgb (14.0 - 18.0 G/DL) 16.7 Hct (42 - 52 %) 49.7 MCV (80.0 - 94.0 FL) 89.5 MCH (27.0 - 31.0 PG) 30.0 RDW (11.5 - 14.5 %) 14.0 Plt Count (130 - 400 /CUMM) 161 MPV (7.4 - 10.4 FL) 9.1 Gran % (42.2 - 75.2 %) 72.3 Lymphocytes % (20.5 - 51.1 %) 18.9 L Monocytes % (1.7 - 9.3 %) 6.9 Eosinophils % (0 - 5 %) 1.3 Basophils % (0.0 - 2.0 %) 0.6 Absolute Granulocytes (1.4 - 6.5 /CUMM) 6.0 Absolute Lymphocytes (1.2 - 3.4 /CUMM) 1.6 Absolute Monocytes (0.10 - 0.60 /CUMM) 0.6 Absolute Eosinophils (0.0 - 0.7 /CUMM) 0.1 Absolute Basophils (0.0 - 0.2 /CUMM) 0 PUBS MCHC (33.0 - 37.0 G/DL) 33.5 Urines Urine Color (YEL,AMB,STR) YEL Urine Clarity (CLEAR) CLEAR Urine pH (5.0 - 8.0) 6.0 Ur Specific [place] (1.001 - 1.035) 1.020 Urine Protein (NEG,<30 MG/DL) NEG Urine Ketones (NEG) NEG Urine Nitrite (NEG) NEG Urine Bilirubin (NEG) NEG Urine Urobilinogen (0.1 - 1.0 EU/dl) 0.2 Ur Leukocyte Esterase (NEG) NEG Ur Microscopic SEDIMENT EXAMINED Urine RBC (0 - 5 /HPF) 1-3 Urine WBC (0 - 2 /HPF) RARE Urine Bacteria (NEG/NONE) RARE H Urine Mucus (FEW,NONE) FEW Urine Hemoglobin (NEG) TRACE-INTACT H Urine Glucose (N MG/DL) NEG
--- NOTE | 2016-08-15 14:50 | Patient Discharge Instructions ---
Discharge Instructions General Discharge Information You were seen/treated for: Lower GI bleeding Watch for these problems: Bleeding per rectum Special Instructions: -His follow-up with your PCP within 1 week after discharge -Please follow-up with Dr. Borden in 10-14 days after discharge Acute Coronary Syndrome Inclusion Criteria At DC or during hospital stay patient has or had the following: ACS DIAGNOSIS No Discharge Core Measures Meds if any: Prescribed or Continued at Discharge Meds if any: NOT Prescribed or Continued at Discharge Congestive Heart Failure Inclusion Criteria At DC or during hospital stay patient has or had the following: CHF DIAGNOSIS No Discharge Core Measures Meds if any: Prescribed or Continued at Discharge Meds if any: NOT Prescribed or Continued at Discharge Cerebrovascular accident Inclusion Criteria At DC or during hospital stay patient has or had the following: CVA/TIA Diagnosis No Discharge Core Measures Meds if any: Prescribed or Continued at Discharge Meds if any: NOT Prescribed or Continued at Discharge Venous thromboembolism Inclusion Criteria VTE Diagnosis No VTE Type NONE VTE Confirmed by (Test) NONE Discharge Core Measures - Per Current guidelines, there needs to be overlap - treatment for the first 5 days of Warfarin therapy. - If discharged on Warfarin prior to 5 days of - overlap therapy, the patient will need to be - assessed for post discharge needs including - *Post discharge parental anticoagulation - *Warfarin and/or parental anticoagulation education - *Follow up date to check INR post discharge At least 5 days overlap therapy as Inpatient Yes Meds if any: Prescribed or Continued at Discharge Note: Overlap Therapy is Warfarin and Anticoagulant Meds if any: NOT Prescribed or Continued at Discharge
[2016-08-15 15:15] VITALS: BP 142/81
[2016-08-15 23:00] VITALS: BP 132/80
[2016-08-16 06:38] VITALS: BP 131/82
[2016-08-16 08:14] LABS: BASOPHIL % 0.3 % (0.0-2.0); EOSINOPHIL % 2.2 % (0-5); GRANULOCYTE % 60.2 % (42.2-75.2); RED BLOOD CELL CT 5.09 /CUMM (4.70-6.10); WHITE BLOOD CELL COUNT 7.5 /CUMM (4.8-10.8)
--- NOTE | 2016-08-16 08:22 | PN- Housestaff ---
See Addendum Subjective Follow-up For: GI bleed Abdominal discomfort Complaints: Diffuse abdominal pain Subjective: Interval history: Morning Mr. Rhodes reports as night he was woken up by diffuse abdominal discomfort with what he describes as a "burning sensation". This was followed by one bowel movement with a small amount of formed stool and deana red blood. He denies any dizziness associated with this episode. He does report persistence in his abdominal discomfort and some mild nausea. He denies any fevers, chills, palpitations, shortness of breath at this time. Review of Systems Constitutional: Reports: see HPI. EENTM: Reports: no symptoms. Cardiovascular: Reports: no symptoms. Respiratory: Reports: no symptoms. Gastrointestinal: Reports: see HPI. Genitourinary: Reports: no symptoms. Musculoskeletal: Reports: no symptoms. Objective Last 24 Hrs of Vital Signs/I&O Vital Signs Date Time Temp Pulse Resp B/P Pulse O2 O2 Flow FiO2 Ox Delivery Rate 08/16 0922 60 131/82 08/16 0638 96.8 60 20 131/82 98 / 2300 97.7 72 18 132/80 95 Room Air / 2227 72 132/80 / 1731 62 142/81 03/04 1515 98.0 62 20 142/81 98 Room Air Intake & Output 08/16 1600 08/16 0800 08/16 0000 Intake Total 300 480 Output Total Balance 300 480 Intake, Oral 300 480 Number 1 Bowel Movements Physical Exam General Appearance: Alert, Cooperative, No Acute Distress Skin: No Rashes, No Breakdown HEENT: EOMI, Mucous Membr. moist/pink Cardiovascular: Regular Rate, Normal S1, Normal S2 Lungs: Clear to Auscultation, Normal Air Movement Abdomen: Hyperactive bowel sounds. Mild tenderness elicited on palpation of the abdomen diffusely Neurological: Normal Speech Extremities: No Edema, Normal Pulses Current Medications: Current Medications Sig/Darwin Start time Last Medication Dose Route Stop Time Status Admin Acetaminophen 650 MG Q6P PRN 08/14 1929 AC PO Acetaminophen 1,000 MG Q6P PRN 08/14 1929 AC 08/15 IV 2100 Calcium Carbonate 500 MG .STK-MED ONE 08/16 0018 DC PO 08/16 001 Calcium Carbonate 500 MG ONCE ONE 08/15 2299 DC 08/16 PO 08/15 230 0022 Insulin Aspart 0 TIDAC 08/15 1200 AC SC Losartan Potassium 50 MG DAILY 08/15 1600 AC 08/16 PO 0922 Montelukast Sodium 10 MG DAILY 08/15 1000 AC 08/16 PO 0923 Morphine Sulfate 2 MG Q6-PRN PRN 08/14 1945 AC IV Omeprazole 20 MG DAILY AC 08/15 0700 AC 08/16 PO 06 Tamsulosin HCl 0.4 MG QPM 08/15 2200 AC 08/15 PO 2227 Last 24 Hrs of Lab/Mars Results Last 24 Hrs of Labs/Mics: Laboratory Tests 08/16/16 0935: Lactic Acid Pending 08/16/16 0640: CBC w Diff NO MAN DIFF REQ, RBC 5.09, MCV 90.8, MCH 30.1, RDW 14.1, MPV 8.8, Gran % 60.2, Lymphocytes % 27.9, Monocytes % 9.4 H, Eosinophils % 2.2, Basophils % 0.3, Absolute Granulocytes 4.5, Absolute Lymphocytes 2.1, Absolute Monocytes 0.7 H, Absolute Eosinophils 0.2, Absolute Basophils 0, PUBS MCHC 33.2 Assessment/Plan Assessment: 61-year-old gentleman with a PMH of diverticulosis, DM, HTN, GERD, BPH and chronic back pain who presented with complaints of abdominal discomfort and bright red blood per rectum. Patient also endorses a recent episode of dark tarry stools followed by bright red blood per rectum recently. He did undergo a flex sigmoidoscopy on 08/14/16 with findings consistent of: Diverticulosis, enlarged internal hemorrhoids without evidence of active or recent bleeding. Recommendations were for continued observation, clear liquid diet and CBC trending Problem list: 1. GI bleed 2. Enlarged internal hemorrhoids 3. Abdominal discomfort 4. DM 5. Hypertension Plan: 1. GI bleed * We'll obtain lactic acid levels * We'll consider abdominal x-ray/CT abdomen and pelvis with contrast for DDX of ischemic colitis * Continue with clear liquids at this time and advance as tolerated 2. Enlarged internal hemorrhoids * Stable at this time 3. Abdominal discomfort * Supportive therapy at this time * We'll start patient on lactose-free diet for DDX of lactose intolerance * Symptoms may be secondary to gastroparesis with his history of diabetes. Will follow hemoglobin A1c * If loose stools, will send of a C. difficile 4. DM * Low dose sliding scale 5. Hypertension * Continue losartan 59 g daily 6. CODE STATUS * Full code 7. DVT prophylaxis * ALPS in the setting of GI bleed Problem List: 1. Rectal bleeding 2. Abdominal pain 3. Diabetes 4. HTN (hypertension) 5. BPH (benign prostatic hyperplasia) Pain Ratin Pain Location: Diffuse abdomen Pain Goal: Pain 4 or less Pain Plan: IV tylenol PRN Tomorrow's Labs & Rationales: CBC DVT/Prophylaxis: mechanical
[2016-08-16 09:10] LABS: ABSOLUTE BASOPHIL COUNT 0 /CUMM (0.0-0.2); ABSOLUTE EOSINOPHIL COUNT 0.2 /CUMM (0.0-0.7); ABSOLUTE GRANULOCYTE CT 4.5 /CUMM (1.4-6.5); ABSOLUTE LYMPH COUNT 2.1 /CUMM (1.2-3.4); ABSOLUTE MONOCYTE COUNT 0.7 /CUMM (0.10-0.60); HEMATOCRIT 46.2 % (42-52); MEAN CORPUSCULAR HGB 30.1 PG (27.0-31.0); MEAN CORPUSCULAR HGB CONC 33.2 G/DL (33.0-37.0); MEAN CORPUSCULAR VOLUME 90.8 FL (80.0-94.0); MEAN PLATELET VOLUME 8.8 FL (7.4-10.4); PLATELET COUNT 158 /CUMM (130-400); RBC DISTRIBUTION WIDTH 14.1 % (11.5-14.5)
--- NOTE | 2016-08-16 11:27 | PN- Gastroenterology ---
Assessment/Plan Assessment/Recommendations: Hematochezia, minor, intermittent. Possible small diverticular bleed, versus hemorrhoidal (although hemorrhoids were not bleeding or friability time of sigmoidoscopy Wednesday). Hematocrit has remained stable over more than 48 hours. Recommendations * Clear liquid diet now * Agree with CT scan of the abdomen and pelvis with IV and po contrast * If CT scan is negative for obstructive process or for diverticulitis/abscess, give GoLYTELY 1 gallon over 3-4 hours later today. Will then proceed to colonoscopy tomorrow (nothing by mouth after midnight, IV fluids). * Follow-up CBC in the morning Subjective Subjective: Continues to have burning lower abdominal pain. Passed a formed bowel movement this morning, accompanied by scant red blood. Objective Vital Signs and I&Os Vital Signs Date Time Temp Pulse Resp B/P Pulse O2 O2 Flow FiO2 Ox Delivery Rate 08/16 0922 60 131/82 08/16 0638 96.8 60 20 131/82 98 / 2300 97.7 72 18 132/80 95 Room Air 08/15 2227 72 132/80 08/15 1731 62 142/81 03/04 1515 98.0 62 20 142/81 98 Room Air Intake & Output 08/16 1600 08/16 0400 08/15 1600 08/15 0400 08/14 1600 08/14 0400 Intake Total 300 480 970 740 Output Total 1600 1000 Balance 300 480 -630 -260 Intake, IV 100 500 Intake, Oral 300 480 870 240 Number 1 0 1 1 Bowel Movements Output, Urine 1600 1000 Patient 280 lb 280 lb Weight Results Pertinent Lab Results: Laboratory Tests 08/16 08/16 0935 0640 Chemistry Hemoglobin A1c Pending Lactic Acid (0.7 - 2.1 mmol/L) 1.9 Hematology CBC w Diff NO MAN DIFF REQ WBC (4.8 - 10.8 /CUMM) 7.5 RBC (4.70 - 6.10 /CUMM) 5.09 Hgb (14.0 - 18.0 G/DL) 15.3 Hct (42 - 52 %) 46.2 MCV (80.0 - 94.0 FL) 90.8 MCH (27.0 - 31.0 PG) 30.1 RDW (11.5 - 14.5 %) 14.1 Plt Count (130 - 400 /CUMM) 158 MPV (7.4 - 10.4 FL) 8.8 Gran % (42.2 - 75.2 %) 60.2 Lymphocytes % (20.5 - 51.1 %) 27.9 Monocytes % (1.7 - 9.3 %) 9.4 H Eosinophils % (0 - 5 %) 2.2 Basophils % (0.0 - 2.0 %) 0.3 Absolute Granulocytes (1.4 - 6.5 /CUMM) 4.5 Absolute Lymphocytes (1.2 - 3.4 /CUMM) 2.1 Absolute Monocytes (0.10 - 0.60 /CUMM) 0.7 H Absolute Eosinophils (0.0 - 0.7 /CUMM) 0.2 Absolute Basophils (0.0 - 0.2 /CUMM) 0 PUBS MCHC (33.0 - 37.0 G/DL) 33.2 03/08/14 0626 2022 Hematology CBC w Diff NO MAN DIFF REQ NO MAN DIFF REQ WBC (4.8 - 10.8 /CUMM) 8.1 9.4 RBC (4.70 - 6.10 /CUMM) 5.07 5.26 Hgb (14.0 - 18.0 G/DL) 15.4 15.6 Hct (42 - 52 %) 45.5 47.4 MCV (80.0 - 94.0 FL) 89.6 90.3 MCH (27.0 - 31.0 PG) 30.3 29.6 RDW (11.5 - 14.5 %) 14.2 14.4 Plt Count (130 - 400 /CUMM) 162 158 MPV (7.4 - 10.4 FL) 9.3 8.7 Gran % (42.2 - 75.2 %) 62.0 65.4 Lymphocytes % (20.5 - 51.1 %) 25.8 24.7 Monocytes % (1.7 - 9.3 %) 9.8 H 8.1 Eosinophils % (0 - 5 %) 2.0 1.5 Basophils % (0.0 - 2.0 %) 0.4 0.3 Absolute Granulocytes (1.4 - 6.5 /CUMM) 5.0 6.1 Absolute Lymphocytes (1.2 - 3.4 /CUMM) 2.1 2.3 Absolute Monocytes (0.10 - 0.60 /CUMM) 0.8 H 0.8 H Absolute Eosinophils (0.0 - 0.7 /CUMM) 0.2 0.1 Absolute Basophils (0.0 - 0.2 /CUMM) 0 0 PUBS MCHC (33.0 - 37.0 G/DL) 33.8 32.8 L 08/14 08/14 1137 1055 Chemistry Sodium (137 - 145 mmol/L) 138 Potassium (3.5 - 5.1 mmol/L) 4.1 Chloride (98 - 107 mmol/L) 101 Carbon Dioxide (22 - 30 mmol/L) 27 Anion Gap (5 - 16) 10 BUN (9 - 20 mg/dL) 16 Creatinine (0.7 - 1.2 mg/dL) 0.9 Estimated GFR (>60 ml/min) > 60 BUN/Creatinine Ratio (7 - 25 %) 17.8 Glucose (65 - 99 mg/dL) 98 Calcium (8.4 - 10.2 mg/dL) 9.5 Coagulation PT (9.4 - 12.5 SEC) 11.8 INR (0.90 - 1.17) 1.13 Hematology CBC w Diff NO MAN DIFF REQ WBC (4.8 - 10.8 /CUMM) 8.3 RBC (4.70 - 6.10 /CUMM) 5.55 Hgb (14.0 - 18.0 G/DL) 16.7 Hct (42 - 52 %) 49.7 MCV (80.0 - 94.0 FL) 89.5 MCH (27.0 - 31.0 PG) 30.0 RDW (11.5 - 14.5 %) 14.0 Plt Count (130 - 400 /CUMM) 161 MPV (7.4 - 10.4 FL) 9.1 Gran % (42.2 - 75.2 %) 72.3 Lymphocytes % (20.5 - 51.1 %) 18.9 L Monocytes % (1.7 - 9.3 %) 6.9 Eosinophils % (0 - 5 %) 1.3 Basophils % (0.0 - 2.0 %) 0.6 Absolute Granulocytes (1.4 - 6.5 /CUMM) 6.0 Absolute Lymphocytes (1.2 - 3.4 /CUMM) 1.6 Absolute Monocytes (0.10 - 0.60 /CUMM) 0.6 Absolute Eosinophils (0.0 - 0.7 /CUMM) 0.1 Absolute Basophils (0.0 - 0.2 /CUMM) 0 PUBS MCHC (33.0 - 37.0 G/DL) 33.5 Urines Urine Color (YEL,AMB,STR) YEL Urine Clarity (CLEAR) CLEAR Urine pH (5.0 - 8.0) 6.0 Ur Specific [place] (1.001 - 1.035) 1.020 Urine Protein (NEG,<30 MG/DL) NEG Urine Ketones (NEG) NEG Urine Nitrite (NEG) NEG Urine Bilirubin (NEG) NEG Urine Urobilinogen (0.1 - 1.0 EU/dl) 0.2 Ur Leukocyte Esterase (NEG) NEG Ur Microscopic SEDIMENT EXAMINED Urine RBC (0 - 5 /HPF) 1-3 Urine WBC (0 - 2 /HPF) RARE Urine Bacteria (NEG/NONE) RARE H Urine Mucus (FEW,NONE) FEW Urine Hemoglobin (NEG) TRACE-INTACT H Urine Glucose (N MG/DL) NEG
--- NOTE | 2016-08-16 14:06 | CT SCAN REPORT ---
EXAM: CTA Abdomen and Pelvis CLINICAL INDICATION: Persistent abdominal pain. Melena and hematochezia. TECHNIQUE: Axial multidetector CTA scan of the abdomen and pelvis was performed following the intravenous administration of 95 cc Optiray 350. Coronal and sagittal reformatted images were also obtained at the acquisition workstation. DLP: 831 mGy-cm COMPARISON: CTA abdomen pelvis 01/09/2010 FINDINGS: VASCULAR: Visualized portions of the inferior thoracic aorta are mildly ectatic but normal in caliber. The abdominal aorta is normal in caliber without significant atherosclerotic disease. The celiac axis, superior mesenteric artery and inferior mesenteric artery are widely patent. There are 2 right-sided renal arteries and 3 left-sided renal arteries. Dominant renal arteries are widely patent. Bilateral common and external iliac arteries are ectatic but patent. Bilateral internal iliac arteries are patent. Bilateral common femoral arteries are patent. NON-VASCULAR: Visualized lung bases are well aerated. The liver demonstrates normal size, contour and attenuation. No intrahepatic biliary ductal dilatation. The gallbladder is normal in appearance. The pancreas, spleen and adrenal glands are unremarkable. The kidneys demonstrate symmetric nephrograms. No nephrolithiasis or hydronephrosis. Bilateral subcentimeter renal hypodensities are too small to accurately characterize. Normal caliber loops of small and large bowel. Moderate to severe colonic diverticulosis without CT evidence to suggest active diverticulitis. Subtle mesenteric stranding within the left mid abdomen, a stable finding. Normal appendix. Stable small to moderate-sized fat-containing umbilical hernia. The bladder is underdistended and therefore cannot be accurately evaluated. The prostate gland is enlarged measuring 5.3 cm in transverse dimension. No pelvic lymphadenopathy. Mild degenerative changes of the spine. IMPRESSION: 1. Normal caliber abdominal aorta. Mesenteric vessels are widely patent. 2. Moderate to severe colonic diverticulosis without CT evidence to suggest active diverticulitis. 3. Stable small to moderate-sized fat-containing umbilical hernia. 4. Enlarged prostate gland.
[2016-08-16 14:33] VITALS: BP 152/70
--- NOTE | 2016-08-16 21:11 | NUR ---
PT FINGERSTICK 65. GAVE PT 2 CUPS APPLE JUICE. WILL REASSESS IN 15 MINUTES.
--- NOTE | 2016-08-16 21:55 | NUR ---
BP 159/114. SENT TEXT PAGE TO [employer] TO ADVISE. PT ASYMPTOMATIC. HOLDING 1X BAG IV FLUIDS AT THIS TIME. STARTED PT ON GO LYTELY AT 2029, PT ADVISED THAT HE DRANK THE ENTIRE GALLON IN UNDER AN HOUR. PT HAS VOIDED ONLY 1X SINCE CONSUMING. WILL CONTINUE TO MONITOR.
[2016-08-16 23:42] VITALS: BP 158/106
[2016-08-17 05:54] VITALS: BP 148/94
--- NOTE | 2016-08-17 07:10 | PN- Housestaff ---
MARYANNE RYDER,[facility] 08/17/16 0710: Subjective Follow-up For: Lower GI bleeding Subjective: Patient was seen and examined this morning, he is scheduled for colonoscopy. He reported bloody diarrhea after having the colonoscopy prep. He denied any abdominal pain today although he had throbbing abdominal pain yesterday. Denied nausea or vomiting. Patient denied any lightheadedness or dizziness on ambulation. Review of Systems Constitutional: Reports: see HPI. Objective Last 24 Hrs of Vital Signs/I&O Vital Signs Date Time Temp Pulse Resp B/P Pulse O2 O2 Flow FiO2 Ox Delivery Rate 08/17 1504 97.8 63 20 140/90 97 Room Air 08/17 0942 132/90 08/17 0554 96.8 62 18 148/94 95 Room Air 08/16 2342 97.3 70 20 158/106 96 Room Air 08/16 2024 152/70 Intake & Output 08/17 1600 08/17 0800 08/17 0000 Intake Total 0 4100 Output Total 400 Balance -400 0 4100 Intake, IV 300 Intake, Oral 0 3800 Number 0 Bowel Movements Output, Urine 400 Physical Exam General Appearance: Alert, Oriented X3, Cooperative, No Acute Distress Skin: No Rashes, No Breakdown, No Significant Lesion HEENT: Atraumatic, PERRLA, EOMI, Mucous Membr. moist/pink Neck: Supple Cardiovascular: Regular Rate, Normal S1, Normal S2, No Murmurs Lungs: Clear to Auscultation, Normal Air Movement Abdomen: Normal Bowel Sounds, Soft, mild tenderness over lower abdomen and right upper and lower quadrant Neurological: Normal Gait, Normal Speech, Strength at 5/5 X4 Ext, Normal Tone, Sensation Intact, Cranial Nerves 3-12 NL, Reflexes 2+ Extremities: No Clubbing, No Cyanosis, No Edema, Normal Pulses Assessment/Plan Assessment: 61-year-old gentleman with a PMH of diverticulosis, DM, HTN, GERD, BPH and chronic back pain who presented with complaints of abdominal discomfort and bright red blood per rectum. Patient also endorses a recent episode of dark tarry stools followed by bright red blood per rectum recently. He did undergo a flex sigmoidoscopy on 08/14/16 with findings consistent of: Diverticulosis, enlarged internal hemorrhoids without evidence of active or recent bleeding. Recommendations were for continued observation, clear liquid diet and CBC trending Problem list: -GI bleed -DM -Hypertension Plan: #GI bleed * Patient had sigmoidoscopy on admission that revealed -Diverticulosis -Enlarged internal hemorrhoids, without evidence of active or recent bleeding * Patient is scheduled for colonoscopy today, continued to have bloody stool with colon Preparation * Colonoscopy revealed -Pandiverticulosis -Diminutive cecal polyp -Enlarged internal hemorrhoids * Lactic acid and abdomen CTA with obtained yesterday due to abdominal pain where; negative for ischemic colitis * Hemoglobin remains stable * Recommendation to increase omeprazole to 40 mg twice a day * Recommendation for discharge today * Patient will follow up as an outpatient with Dr. Borden * Follow-up colonoscopy screen within 1 year #DM * Low dose sliding scale #Hypertension * Continue losartan 59 g daily CODE STATUS * Full code DVT prophylaxis * ALPS in the setting of GI bleed Diet * Advanced to regular diet after colonoscopy Consultation; GI Problem List: 1. BPH (benign prostatic hyperplasia) 2. HTN (hypertension) 3. Diabetes 4. Rectal bleeding Pain Ratin Pain Location: None Pain Goal: Pain 4 or less Pain Plan: Mild pain pathway Tomorrow's Labs & Rationales: NONE DALILA BECERRA MD 08/17/16 2226: Attending MD Review Statement Attending Statement Attending MD Statement: examined this patient, discuss w/resident/PA/SALES ENABLEMENT CONSULTANT, agreed w/resident/PA/SALES ENABLEMENT CONSULTANT, reviewed EMR data (avail), discussed with nursing, discussed with case mgmt, amended to note Attending Assessment/Plan: The patient was seen and discussed with house staff. Agree with plan of care as outlined.
[2016-08-17 08:16] LABS: PT 13.2 SEC (9.4-12.5)
[2016-08-17 08:54] LABS: ABSOLUTE BASOPHIL COUNT 0 /CUMM (0.0-0.2); ABSOLUTE EOSINOPHIL COUNT 0.2 /CUMM (0.0-0.7); ABSOLUTE GRANULOCYTE CT 5.2 /CUMM (1.4-6.5); ABSOLUTE LYMPH COUNT 2.5 /CUMM (1.2-3.4); ABSOLUTE MONOCYTE COUNT 0.7 /CUMM (0.10-0.60); BASOPHIL % 0.4 % (0.0-2.0); EOSINOPHIL % 2.1 % (0-5); GRANULOCYTE % 60.4 % (42.2-75.2); HEMATOCRIT 45.5 % (42-52); MEAN CORPUSCULAR HGB CONC 33.1 G/DL (33.0-37.0); MEAN CORPUSCULAR VOLUME 90.7 FL (80.0-94.0); MEAN PLATELET VOLUME 8.8 FL (7.4-10.4); PLATELET COUNT 172 /CUMM (130-400); RBC DISTRIBUTION WIDTH 14.2 % (11.5-14.5); RED BLOOD CELL CT 5.02 /CUMM (4.70-6.10); WHITE BLOOD CELL COUNT 8.7 /CUMM (4.8-10.8)
--- NOTE | 2016-08-17 12:58 | Proc Note Colonoscopy ---
Colonoscopy Procedure Procedure Date: 08/17/16 Procedure Type: colonoscopy w/polypectomy Merchandise Associate: Supa Reynolds M.D. ASA Classification: III Indications: Lower GI bleeding Abdominal pain Instrument (Colonoscope): single channel Meds Received: MAC Patient's Tolerance: good Complications: none Extent Reached: cecum Prep: fair to poor Procedure: The patient signed informed consent, was placed in the Power position, and medicated. Examination of the rectum and prostate was normal. The Olympus high -definition variable stiffness colonoscope was inserted through the anus and advanced to the cecum, identified by the appendiceal orifice and ileocecal valve. Careful examination was performed. There was adequate withdrawal time. Findings: There were enlarged internal hemorrhoids, without active bleeding. The rectum was otherwise normal. Diverticula extended from the sigmoid to the right colon. In the cecum was a diminutive polyp, removed with electrocautery snare and 25 W. coagulative current. Given the degree of preparation, other polyps and angiodysplasias may been obscured. Of note there was no visible blood, neither old nor fresh, throughout the course of the procedure. Impression: * Pandiverticulosis * Diminutive cecal polyp * Enlarged internal hemorrhoids Recommendations: * Await pathology * Increase omeprazole to 40 mg by mouth twice a day * Discharge patient * Outpatient follow-up with Dr. Borden Followup Colonscopy Screen In: in 1 year CC: LINA PORTILLO MD; MARY CARMEN RYDER,TRAN
[2016-08-17 15:04] VITALS: BP 140/90
[2016-08-17] MEDS ORDERED: OMEPRAZOLE40 M1 PO (15:21)
--- NOTE | 2016-08-17 16:04 | Discharge Summary ---
Visit Information Visit Dates Admission Date: 08/14/16 Discharge Date: 08/17/16 Hospital Course Course Attending Physician: DALILA BECERRA MD Primary Care Physician: LINA PORTILLO MD Hospital Course: Mr Rhodes is a 61-year-old [place]orean gentleman with a PMH of HTN, HLD, diabetes , chronic back pain and BPH presented to [place] with complaints of bright red blood per rectum. Symptoms started the day prior with painless bright red blood per rectum with a low amount of stool. He reported 7 subsequent episodes with what associated abdominal discomfort that he described as a burning sensation. He denied any cramping, dizziness, lightheadedness, chest pain, palpitations or shortness of breath. He did undergo a flexible sigmoidoscopy findings positive for diverticulosis and an enlarged internal hemorrhoid without evidence of active bleeding. The patient was initially admitted under observation overnight. The following morning he did complain of persistent abdominal discomfort for which we further worked up. VS on admission: BP 146/108, HR 96, RR 18, SPO2 97% on RA, T 97.6 PE on admission: No acute distress, mucous membranes pink and moist. RRR, normal S1/S2. Lungs CTA BL. Bowel sounds, soft, nontender to palpation. No focal deficits. No evidence of edema in the lower extremities. Pulses symmetrical Pertinent labs: WBC 8.3, H&H 16.7/49.7, platelets 161, BUN/CR 16/0.9, hemoglobin A1c 6.4, INR 1.13 Admitted the patient to the medicine floor for management of following problems: 1. Bright red blood per rectum 2. Abdominal pain 3. Hypertension 4. Diabetes Hospital course: 1. Bright red blood per rectum * H&E and underwent a flexible sigmoidoscopy on 08/14/[address] Reynolds * Impression: Diverticulosis. Enlarged internal hemorrhoids, without evidence of active or recent bleeding. Plan was for observation, clear liquid diet with repeat CBC which remained stable throughout the hospital course 2. Abdominal pain * Patient continued to complain of a diffuse burning sensation in his abdomen. On hospital day #2 he had 2 well formed bowel movements that were black in color , guaiac positive * We obtained a lactic acid and a CT abdomen with contrast. Lactic acid result came back normal at 1.9. * CT abdomen pelvis with contrast: Normal caliber abdominal aorta. Mesenteric vessels are widely patent. Moderate to severe colonic diverticulosis without CT evidence to suggest active diverticulitis. Stable small to moderate-sized fat- containing umbilical hernia. Enlarged prostate gland. * The patient was prepped with GoLYTELY at night and underwent a colonoscopy the following day * Colonoscopy report: An diverticulosis, diminutive cecal polyp, enlarged internal hemorrhoids. Biopsies were obtained with pathology to be followed up as an outpatient. He tolerated diet advancement and we discharged the patient on omeprazole 40 mg PO BID * Patient will require repeat colonoscopy in one year 3. Hypertension * We initially held his BP medications out of caution in the setting of GI bleed. Throughout the hospital course his blood pressure remained stable. Continued him on losartan 50 mg daily 4. Diabetes * Hemoglobin A1c 6.4. Maintain the patient on a low-dose sliding scale with sugars well controlled throughout hospital stay Allergies: Coded Allergies: STATINS (Severe, MUSCLE ACHING, "TAKES MY BREATH AWAY" 08/13/16) soybean (Severe, "CAN'T BREATHE" 08/13/16) Significant Procedures: Flexible sigmoidoscopy: Reported as indicated above Colonoscopy: report as indicated above Disposition Summary Disposition Principal Diagnosis: GI bleed Additional Diagnosis: Abdominal pain Hypertension Diabetes Discharge Disposition: home or self care Discharge Instructions General Discharge Information Code Status: Full Code Patient's Diet: Diabetic Patient's Activity: As tolerated Follow-Up Instructions/Appts: These follow-up with her PCP within 1-2 weeks after discharge. Please follow-up with your hospital chief executive officer Dr. Borden within 1-2 weeks after discharge Medications at Discharge Discharge Medications: Continue taking these medications: Cyclobenzaprine HCl (Cyclobenzaprine HCl) 10 MG TABLET 1 Tablet ORAL Every night as needed Qty = 30 Comments: NOT GIVEN IN HOSPITAL Ammonium Lactate (Ammonium Lactate) 12 % LOTION On the skin TWICE DAILY Qty = 400 Comments: NOT GIVEN IN HOSPITAL Meloxicam (Meloxicam) 15 MG TABLET 1 Tablet ORAL DAILY NEEDED Qty = 90 Comments: NOT GIVEN IN HOSPITAL Montelukast Sodium (Montelukast Sodium) 10 MG TABLET 1 Tablet ORAL DAILY Qty = 90 Comments: Last Taken: 08/17/16 Time: 0942 Sitagliptin Phos/Metformin HCl (Janumet 50-500 MG Tablet) 50 MG-500 MG TABLET 1 Tablet ORAL TWICE DAILY Qty = 180 Comments: DID NOT RECEIVE IN HOSPITAL Testosterone Cypionate (Testosterone Cypionate) 200 MG/ML VIAL 1 Milliliters INTRAMUSC EVERY 2 WEEKS Qty = 10 Comments: NOT GIVEN IN HOSPITAL Tamsulosin HCl (Tamsulosin HCl) 0.4 MG CAP.ER.24H 1 Capsule ORAL Every night Qty = 90 Comments: Last Taken: 08/16/16 Time: 8:40 PM Dexlansoprazole (Dexilant) 60 MG CAP.DR.BP 1 Capsule ORAL DAILY Qty = 90 Comments: NOT GIVEN IN HOSPITAL Olmesartan/Hydrochlorothiazide (Benicar Hct 20-12.5 MG Tablet) 20 MG-12.5 MG TABLET 1 Tablet ORAL DAILY Qty = 90 Comments: Last Taken: 08/17/16 Time: 0942 AM COZAAR TAKEN Azelastine HCl (Azelastine HCl) 137 MCG (0.1 %) SPRAY.PUMP 2 [place] Both sides of nose 2 x Daily as needed as needed for ITCHING Qty = 30 Comments: NOT GIVEN IN HOSPITAL Lidocaine/Hydrocortisone AC (Lidocaine-Hc 3-1% Cream Kit) 3 %-1 % (7 GRAM) KIT RECTALLY THREE TIMES A DAY NEEDED Qty = 1 Comments: NOT GIVEN IN HOSPTIAL Start taking the following new medications: Omeprazole (Omeprazole) 40 MG CAPSULE.DR 1 Capsule ORAL TWICE DAILY Qty = 60 No Refills Comments: Last Taken: 08/17/16 Time: 6:30 pm Copies To: BANDAR RYDER,LINA Kiran; NEDRA RYDER,KEL Haney; MARY CARMEN RYDER,TRAN Foster MD Review Statement Documenting Attending: DALILA BECERRA MD Other Findings: The patient was seen and discussed with house staff. Agree with plan of care upon discharge.
== END 2016-08-17 20:35 ==
LOC: ENRESERVTM → ENRESERVDT → ERH 10:16 → ERHI 15:58 → 2NB 15:58
PROVIDERS: Internal Medicine; Physician Assistant; Student in an Organized Health Care Education/Training Program; ADMIT Internal Medicine
DX: D12.0 Benign neoplasm of cecum (principal); K57.90 Diverticulosis of intestine, part unspecified, without perforation or abscess without bleeding; E11.9 Type 2 diabetes mellitus without complications; I10 Essential (primary) hypertension; K21.9 Gastro-esophageal reflux disease without esophagitis; N40.0 Benign prostatic hyperplasia without lower urinary tract symptoms; E78.5 Hyperlipidemia, unspecified; F17.200 Nicotine dependence, unspecified, uncomplicated; K64.8 Other hemorrhoids
CPT/HCPCS: 36415; 74174; 81001; 82436; 88305; G0378; J0131; J1815; J2405

== ENCOUNTER → 2017-11-09 | Day surgery (SDC) | payer OTHER ==
[~2017-11-09] VITALS: Ht 172.7 cm; Wt 125.2 kg
[~2017-11-09] MED LIST: AMMONIUM LACTA226 GM TOP; AZELASTINE137 MCG/0. NASB; BENICAR HCT 201 EACH PO; BIOTIN800 MCG PO; CYCLOBENZAPRINE10 M1 PO; DEXILANT60 M1 PO; JANUMET 50-5001 EACH PO; LIDOCAINE HC TOP; MELOXICAM15 M1 PO; MONTELUKAST SOD10 M1 PO; MYRBETRIQ25 M1 PO; OMEPRAZOLE40 M1 PO; OXYCODONE HCL5 M1 PO; TAMSULOSIN HCL0.4 M1 PO; TESTOSTERO200 MG/1 M IM; VITAMIN D31000 UNI1 PO
--- NOTE | 2017-11-09 12:50 | Operative Report ---
Operative/Inv Procedure Report Surgery Date: 11/09/17 Name of Procedure: Stapled hemorrhoidectomy/stapled hemorrhoidal pexy Pre-Operative Diagnosis: Grade 2 internal hemorrhoids Post-Operative Diagnosis: Grade 2 internal hemorrhoids Estimated Blood Loss: graciela Surgeon/Health Education Teacher: Geovani Cheek Jr., DO Anesthesia: laryngeal mask airway, block Monitors: per routine Specimens: Rectal mucosa was internal hemorrhoids Complications: None Condition: Good Operative Indication: Is a 62-year-old gentleman who had been taking care of for some time now. His chief complaint is rectal bleeding patient has large internal hemorrhoids. We have tried diet and left some modifications as well as rubber band ligations without perceptible control of his rectal bleeding. He presents today for staple hemorrhoidectomy Operative/Procedure Note Note: On the morning of his procedure the patient did a Fleet enema at home. He presented to [facility] was taken to the operating room. He was placed in the supine position on the operating room table and underwent induction of general anesthesia with placement of laryngeal mask airway. He was converted to lithotomy position in [facility]. The perineum was prepped and draped in usual fashion. An anal block was performed using 0.5% Marcaine with epinephrine, a total of 30 mL was injected. Next a Fansler operating proctoscope was placed in the anal canal and a irrigated away any residual stool and enema. The stationary anoscope was then inserted using the trocar device and sutured into place with 0 Vicryl suture. The slotted anoscope was then inserted and a pursestring was performed 6 cm cephalad to the dentate line starting in left lateral position and then going 360 until the tails met. The slotted scope was then removed I pulled the pursestring tightened to tested and there was no gapping. The EEA anvil of the stapling device was then placed with the head of the anvil cephalad to the pursestring. The pursestring was tied snugly around the PEG of the anvil and then secured to the anvil at the second slot Purstring suture. The stapler was mated to the anvil and the stapler was closed slowly until it in the fire ready position. The stapler was allowed to settle here for 1 minute. Stapler was then armed and fired. The stapler was then opened and completely removed. I had an excellent doughnut on the stapling device. I inspected the staple line quadrant by quadrant for bleeding there was none. So this point the procedure was concluded and the stationary anoscope was removed. The perineum was cleansed and dried and a bulky dressing was placed over the anus and the patient was converted back to supine. Patient tolerated the procedure well taken recovery area in good condition. At the end of this operational needle sponges and attachments were accounted for.
== END ==
LOC: STS 01:04
DX: K64.1 Second degree hemorrhoids (principal); K57.90 Diverticulosis of intestine, part unspecified, without perforation or abscess without bleeding; K21.9 Gastro-esophageal reflux disease without esophagitis; E11.9 Type 2 diabetes mellitus without complications; Z79.84 Long term (current) use of oral hypoglycemic drugs; I10 Essential (primary) hypertension; E66.01 Morbid (severe) obesity due to excess calories; Z68.41 Body mass index [BMI] 40.0-44.9, adult; F17.290 Nicotine dependence, other tobacco product, uncomplicated
CPT/HCPCS: J0131; J0690; J2250